=== PATIENT | female | born 1940 | race Caucasian/White ===

== ENCOUNTER → 2024-05-20 13:01 | Outpatient (REF) | payer OTHER, SELFPAY | LOC: HWRAD 13:01 | PROVIDERS: ATTENDING PHYSICIAN Nurse Practitioner; FAMILY PHYSICIAN Internal Medicine Geriatric Medicine | DX: N39.46 Mixed incontinence (principal); N32.81 Overactive bladder; N39.0 Urinary tract infection, site not specified | CPT/HCPCS: 76770; 76856 ==

== ENCOUNTER → 2025-01-13 13:34 | Outpatient (REF) | payer OTHER, SELFPAY | LOC: HWRAD 13:34 | PROVIDERS: ATTENDING PHYSICIAN Specialist; FAMILY PHYSICIAN Student in an Organized Health Care Education/Training Program | DX: M19.011 Primary osteoarthritis, right shoulder (principal) | CPT/HCPCS: 73200 ==